=== PATIENT | male | born 1955 | race Caucasian/White ===

== ENCOUNTER 2024-06-26 11:35 | Emergency (ER) | payer BC, MEDICAID, MEDICARE ==
[2024-06-26] MEDS: HYDROmorphone 1 MG/ML Syringe IVPUSH ONE ×3 (11:47→14:45)
[2024-06-26 12:32] LABS: BASOPHILS ABSOLUTE AUTO 0.04 10^3/uL (0.00-0.50); BASOPHILS PERCENT AUTO 0.3 % (0-1); EOSINOPHILS ABSOLUTE AUTO 0.19 10^3/uL (0.00-1.50); EOSINOPHILS PERCENT AUTO 1.5 % (0-6); HEMATOCRIT 42.7 % (42.0-52.0); HEMOGLOBIN 14.4 g/dL (14.0-18.0); IMMATURE GRAN ABSOLUTE AUTO 0.09 10^3/uL (0.00-0.49); IMMATURE GRAN PERCENT AUTO 0.7 % (0.0-4.9); LYMPHOCYTES ABSOLUTE AUTO 1.14 10^3/uL (0.60-5.00); LYMPHOCYTES PERCENT AUTO 9.1 % (24-44); MEAN CORPUSCULAR HEMOGLOBIN 31.9 pg (27.0-32.0); MEAN CORPUSCULAR HGB CONC 33.7 g/dL (32.0-36.0); MEAN CORPUSCULAR VOLUME 94.5 fL (83.0-97.0); MONOCYTES ABSOLUTE AUTO 0.75 10^3/uL (0.00-1.50); NEUTROPHILS ABSOLUTE AUTO 10.34 x10^3/uL (1.80-8.00); NEUTROPHILS PERCENT AUTO 82.4 % (41-71); PLATELET COUNT,PLT 165 10^3/uL (150-400); RED BLOOD CELL COUNT 4.52 x10^6/uL (4.50-6.00); WHITE BLOOD CELL COUNT,WBC 12.6 10^3/uL (4.0-11.0)
[2024-06-26 12:49] LABS: ALANINE AMINOTRANSFERASE,ALT 26 U/L (12-78); ALBUMIN 3.9 g/dL (3.4-5.0); ALKALINE PHOSPHATASE 74 U/L (46-116); ASPARTATE AMNIOTRANSFERASE,AST 26 U/L (15-37); BILIRUBIN TOTAL 0.5 mg/dL (0.0-1.0); BLOOD UREA NITROGEN,BUN 18 mg/dL (7-18); CALCIUM 9.5 mg/dL (8.4-10.1); CARBON DIOXIDE,CO2 29 mmol/L (21-32); CHLORIDE,CL 104 mEq/L (98-106); CREATININE 0.8 mg/dL (0.7-1.3); GLUCOSE RANDOM 112 mg/dL (75-99); LIPASE 42 U/L (16-77); POTASSIUM,K 4.6 mEq/L (3.5-5.0); SODIUM,NA 142 mEq/L (136-145)
[2024-06-26 12:50] LABS: ESTIMATED GFR 97 mL/min (>=60)
[2024-06-26] MEDS: Diphtheria,Pertussis(Acell),Tetanus Vaccine 0.5 ML Syringe IM ONE (13:05)
[2024-06-26 14:20] LABS: APPEARANCE,URINE CLEAR (CLEAR); BILIRUBIN,URINE NEGATIVE (NEGATIVE); COLOR,URINE YELLOW (YELLOW); GLUCOSE,URINE NEGATIVE (NEGATIVE); KETONES,URINE NEGATIVE (NEGATIVE); LEUKOCYTE ESTERASE,URINE NEGATIVE (NEGATIVE); NITRITE,URINE NEGATIVE (NEGATIVE); OCCULT BLOOD,URINE NEGATIVE (NEGATIVE); PH,URINE 6.5 (4.5-8.0); PROTEIN,URINE NEGATIVE (NEGATIVE); UROBILINOGEN,URINE 0.2 EU/dL (0.2-1.0)
[2024-06-26 17:25] VITALS: BP 146/72; PULSE 62
== END 2024-06-26 15:15 ==
LOC: CC.ED 11:35
DX: S32.021A Stable burst fracture of second lumbar vertebra, initial encounter for closed fracture (principal); I10 Essential (primary) hypertension; E78.00 Pure hypercholesterolemia, unspecified; J44.9 Chronic obstructive pulmonary disease, unspecified; Z95.5 Presence of coronary angioplasty implant and graft; Z79.82 Long term (current) use of aspirin; Z79.899 Other long term (current) drug therapy; W11.XXXA Fall on and from ladder, initial encounter
CPT/HCPCS: 36415; 51702; 71045; 72128; 72131; 72192; 80053; 81003; 83690; 85025; 90471; 90715; 96374; 96375; 96376; 99284; 99285-25; J1170; J3360

== ENCOUNTER 2024-08-01 12:45 | Emergency (ER) | payer MEDICARE, OTHER ==
[2024-08-01 13:07] VITALS: BP 157/71; PULSE 72
[2024-08-01] MEDS: cefTRIAXone 1 GM, Lidocaine 1% 2.1 ML IM SCH (13:56)
[2024-08-01] MEDS: Take Home: Cephalexin 500 MG Cap, 6 Cap Pack PO ONE (13:57)
== END 2024-08-01 14:05 | disposition home or self-care (01) ==
LOC: CC.ED 12:45
DX: L03.113 Cellulitis of right upper limb (principal); I10 Essential (primary) hypertension; E78.00 Pure hypercholesterolemia, unspecified; Z79.82 Long term (current) use of aspirin; Z79.899 Other long term (current) drug therapy
CPT/HCPCS: 96372; 99283; A9270-GY; J0696; J3490